=== PATIENT | male | born 1945 | race Asian ===

== ENCOUNTER 2021-05-20 06:15 | Emergency (ER) | payer MEDICARE, OTHER ==
[~2021-05-20] VITALS: Ht 162.6 cm; Wt 73.2 kg
[2021-05-20 06:16] VITALS: BP 120/64
[2021-05-20] MEDS ORDERED: BUPR1FIL SL (06:28)
[2021-05-20] MEDS ORDERED: XARE20TA PO (06:38)
[2021-05-20] MEDS ORDERED: DIGO0.123 PO (06:38)
[2021-05-20] MEDS ORDERED: SENN8.6T58 PO (06:38)
[2021-05-20] MEDS ORDERED: NALO12.5 PO (06:38)
[2021-05-20] MEDS ORDERED: SIMV10TA21 PO (06:38)
[2021-05-20] MEDS ORDERED: RAPA8CAP4 PO (06:38)
[2021-05-20] MEDS ORDERED: METF-839 PO (06:38)
[2021-05-20] MEDS ORDERED: HALO0.052 TOP (06:38)
[2021-05-20] MEDS ORDERED: FERR325T3 PO (06:38)
[2021-05-20] MEDS ORDERED: ATEN25TA PO (06:38)
[2021-05-20] MEDS ORDERED: VITACAP8 PO (06:38)
[2021-05-20] MEDS ORDERED: LINZ145C PO (06:38)
[2021-05-20] MEDS ORDERED: NEPHTAB2 PO (06:38)
[2021-05-20] MEDS ORDERED: DOCU100C16 PO (06:38)
[2021-05-20] MEDS ORDERED: AVOD0.5C PO (06:38)
--- OUTSIDE RECORDS SUMMARY | 2021-05-20 11:28 | CCD ---
Author Author [facility] Organization [facility] Address Unknown Phone Unavailable Care Team Providers Care Equipment Monitor Phototypesetting Name Role Phone Lundy, M Luna PA-C Unavailable Unavailable Lundy, M Luna PA-C Unavailable Unavailable Lundy, M Luna PA-C Unavailable Unavailable Lundy, M Luna PA-C Unavailable Unavailable Lundy, M Luna PA-C Unavailable Unavailable Lundy, M Luna PA-C Unavailable Unavailable Lundy, M Luna PA-C Unavailable Unavailable Lundy, M Luna PA-C Unavailable Unavailable Lundy, M Luna PA-C Unavailable Unavailable Lundy, M Luna PA-C Unavailable Unavailable Lundy, M Luna PA-C Unavailable Unavailable Lundy, M Luna PA-C Unavailable Unavailable Lundy, M Luna PA-C Unavailable Unavailable Lnudy, M Luna PA-C Unavailable Unavailable Lundy, M Luna PA-C Unavailable Unavailable Lundy, M Luna PA-C Unavailable Unavailable Lundy, M Luna PA-C Unavailable Unavailable Lundy, M Luna PA-C Unavailable Unavailable Lundy, M Luna PA-C Unavailable Unavailable Lundy, M Luna PA-C Unavailable Unavailable Lundy, M Luna PA-C Unavailable Unavailable Lundy, M Luna PA-C Unavailable Unavailable Lundy, M Luna PA-C Unavailable Unavailable Lundy, M Luna PA-C Unavailable Unavailable Lundy, M Luna PA-C Unavailable Unavailable Lundy, M Luna PA-C Unavailable Unavailable Lundy, M Luna PA-C Unavailable Unavailable Lundy, M Luna PA-C Unavailable Unavailable Lundy, M Luna PA-C Unavailable Unavailable Lundy, M Luna PA-C Unavailable Unavailable Lundy, M Luna PA-C Unavailable Unavailable Lundy, M Luna PA-C Unavailable Unavailable Lundy, M Luna PA-C Unavailable Unavailable Lundy, M Luna PA-C Unavailable Unavailable Lundy, M Luna PA-C Unavailable Unavailable Lundy, M Luna PA-C Unavailable Unavailable Lundy, M Luna PA-C Unavailable Unavailable Lundy, M Luna PA-C Unavailable Unavailable Kunnumpurath, F Elmira MD Unavailable Unavailable Kunnumpurath, F Elmira MD Unavailable Unavailable Kunnumpurath, F Elmira MD Unavailable Unavailable Kunnumpurath, F Elmira MD Unavailable Unavailable Kunnumpurath, F Elmira MD Unavailable Unavailable Kunnumpurath, F Elmira MD Unavailable Unavailable Kunnumpurath, F Elmira MD Unavailable Unavailable Kunnumpurath, F Elmira MD Unavailable Unavailable Kunnumpurath, F Elmira MD Unavailable Unavailable Kunnumpurath, F Elmira MD Unavailable Unavailable Kunnumpurath, F Elmira MD Unavailable Unavailable Kunnumpurath, F Elmira MD Unavailable Unavailable Kunnumpurath, F Elmira MD Unavailable Unavailable Kunnumpurath, F Elmira MD Unavailable Unavailable Kunnumpurath, F Elmira MD Unavailable Unavailable Kunnumpurath, F Elmira MD Unavailable Unavailable Kunnumpurath, F Elmira MD Unavailable Unavailable Kunnumpurath, F Elmira MD Unavailable Unavailable Kunnumpurath, F Elmira MD Unavailable Unavailable Kunnumpurath, F Elmira MD Unavailable Unavailable Kunnumpurath, F Elmira MD Unavailable Unavailable Kunnumpurath, F Elmira MD Unavailable Unavailable Kunnumpurath, F Elmira MD Unavailable Unavailable Kunnumpurath, F Elmira MD Unavailable Unavailable Kunnumpurath, F Elmira MD Unavailable Unavailable Kunnumpurath, F Elmira MD Unavailable Unavailable Kunnumpurath, F Elmira MD Unavailable Unavailable Kunnumpurath, F Elmira MD Unavailable Unavailable Kunnumpurath, F Elmira MD Unavailable Unavailable Kunnumpurath, F Elmira MD Unavailable Unavailable Kunnumpurath, F Elmira MD Unavailable Unavailable Kunnumpurath, F Elmira MD Unavailable Unavailable Kunnumpurath, F Elmira MD Unavailable Unavailable Kunnumpurath, F Elmira MD Unavailable Unavailable Kunnumpurath, F Elmira MD Unavailable Unavailable Kunnumpurath, F Elmira MD Unavailable Unavailable Kunnumpurath, F Elmira MD Unavailable Unavailable Kunnumpurath, F Elmira MD Unavailable Unavailable Kunnumpurath, F Elmira MD Unavailable Unavailable Kunnumpurath, F Elmira MD Unavailable Unavailable Kunnumpurath, F Elmira MD Unavailable Unavailable Kunnumpurath, F Elmira MD Unavailable Unavailable Kunnumpurath, F Elmira MD Unavailable Unavailable Kunnumpurath, F Elmira MD Unavailable Unavailable Kunnumpurath, F Elmira MD Unavailable Unavailable Kunnumpurath, F Elmira MD Unavailable Unavailable Kunnumpurath, F Elmira MD Unavailable Unavailable Kunnumpurath, F Elmira MD Unavailable Unavailable Kunnumpurath, F Elmira MD Unavailable Unavailable Kunnumpurath, F Elmira MD Unavailable Unavailable Kunnumpurath, F Elmira MD Unavailable Unavailable Kunnumpurath, F Elmira MD Unavailable Unavailable Kunnumpurath, F Elmira MD Unavailable Unavailable Kunnumpurath, F Elmira MD Unavailable Unavailable Kunnumpurath, F Elmira MD Unavailable Unavailable Kunnumpurath, F Elmira MD Unavailable Unavailable Kunnumpurath, F Elmira MD Unavailable Unavailable Kunnumpurath, F Elmira MD Unavailable Unavailable Kunnumpurath, F Elmira MD Unavailable Unavailable Kunnumpurath, F Elmira MD Unavailable Unavailable Kunnumpurath, F Elmira MD Unavailable Unavailable Kunnumpurath, F Elmira MD Unavailable Unavailable Kunnumpurath, F Elmira MD Unavailable Unavailable Kunnumpurath, F Elmira MD Unavailable Unavailable Kunnumpurath, F Elmira MD Unavailable Unavailable Kunnumpurath, F Elmira MD Unavailable Unavailable Kunnumpurath, F Elmira MD Unavailable Unavailable Kunnumpurath, F Elmira MD Unavailable Unavailable Kunnumpurath, F Elmira MD Unavailable Unavailable Kunnumpurath, F Elmira MD Unavailable Unavailable Kunnumpurath, F Elmira MD Unavailable Unavailable Kunnumpurath, F Elmira MD Unavailable Unavailable Kunnumpurath, F Elmira MD Unavailable Unavailable Kunnumpurath, F Elmira MD Unavailable Unavailable Kunnumpurath, F Elmira MD Unavailable Unavailable Kunnumpurath, F Elmira MD Unavailable Unavailable Kunnumpurath, F Elmira MD Unavailable Unavailable Kunnumpurath, F Elmira MD Unavailable Unavailable Kunnumpurath, F Elmira MD Unavailable Unavailable Kunnumpurath, F Elmira MD Unavailable Unavailable Kunnumpurath, F Elmira MD Unavailable Unavailable Kunnumpurath, F Elmira MD Unavailable Unavailable Kunnumpurath, F Elmira MD Unavailable Unavailable Kunnumpurath, F Elmira MD Unavailable Unavailable Kunnumpurath, F Elmira MD Unavailable Unavailable Kunnumpurath, F Elmira MD Unavailable Unavailable Kunnumpurath, F Elmira MD Unavailable Unavailable Kunnumpurath, F Elmira MD Unavailable Unavailable Kunnumpurath, F Elmira MD Unavailable Unavailable Kunnumpurath, F Elmira MD Unavailable Unavailable Kunnumpurath, F Elmira MD Unavailable Unavailable Kunnumpurath, F Elmira MD Unavailable Unavailable Re-disclosure Warning The records that you are about to access may contain information from federally-assisted alcohol or drug abuse programs. If such information is present, then the following federally mandated warning applies: This information has been disclosed to you from records protected by federal confidentiality rules (42 CFR part 2). The federal rules prohibit you from making any further disclosure of this information unless further disclosure is expressly permitted by the written consent of the person to whom it pertains or as otherwise permitted by 42 CFR part 2. A general authorization for the release of medical or other information is NOT sufficient for this purpose. The Federal rules restrict any use of the information to criminally investigate or prosecute any alcohol or drug abuse patient.The records that you are about to access may contain highly sensitive health information, the redisclosure of which is protected by Article 27-F of the [facility] Public Health law. If you continue you may have access to information: Regarding HIV / AIDS; Provided by facilities licensed or operated by the [facility] Office of Mental Health; or Provided by the [facility] Office for People With Developmental Disabilities. If such information is present, then the following [facility] mandated warning applies: This information has been disclosed to you from confidential records which are protected by state law. State law prohibits you from making any further disclosure of this information without the specific written consent of the person to whom it pertains, or as otherwise permitted by law. Any unauthorized further disclosure in violation of state law may result in a fine or chcf sentence or both. A general authorization for the release of medical or other information is NOT sufficient authorization for further disc losure. Encounters Encounter Providers Location Date Indications Data Source(s ) Outpatient Attender: Luna Lundy PA-C 11/16 07:17:00 AM EDT - 11/29/2020 07:17:00 AM EDT [facility] Outpatient Attender: Elmira Perez MD 0 09/23/2020 01:26:00 PM EDT - 09/23/2020 01:26:00 PM EDT [facility] Outpatient Attender: Elmira Perez MD Family Practice 0 09/22/2020 03:00:00 PM EDT [facility] ([facility]) Outpatient Attender: Elmira Perez MD 0 09/22/2020 02:57:00 PM EDT - 09/22/2020 02:57:00 PM EDT [facility] Immunizations Vaccine Date Status Description Data Source(s) COVID-19 VACCINE Moderna 11/05/2020 12:00:00 AM EDT completed [facility] Vaccine Series Complete: YESThis Data wa s Submitted to [facility] Via [employer]. COVID-19 VACCINE Moderna 10/08/2020 12:00:00 AM EDT completed [facility] Vaccine Series Complete: NOThis Data was Submitted to [facility] Via [employer]. Medications Medication Brand Name Start Date Product Form Dose Route Admi nistrative Instructions Pharmacy Instructions Status Indications Reaction Description Data Source(s) Metformin hydrochloride 500 MG Oral Tablet Metformin HCL 11/25/2020 12:00:00 AM EDT ORAL completed [facility] ([facility]) 24 HR Metformin hydrochloride 500 MG Extended Release Oral Tablet Metformin HCL ER 11/25/2020 12:00:00 AM EDT ORAL active [facility] ([facility]) Insurance Providers Payer name Policy type / Coverage type Policy ID Covered democrat ID Covered democrat's relationship to fox Policy Fox Plan Information MEDICARE [id number] SP [id number] HUMANA HMO [id number] SP [id number] MEDICAID [facility] [id number] MEDICARE PART A [facility] [id number] Problems, Conditions, and Diagnoses Code Display Name Description Problem Type Effective Dates Data Source(s) L299 Pruritus, unspecified Pruritus, unspecified Diagnosis 11/29/2020 07:17:00 AM EDT [facility] Z0289 Encounter for other administrative exami nations Encounter for other administrative examinations Diagnosis 11/29/2020 07:17:00 AM EDT [facility] E11.9 Type 2 diabetes mellitus Type 2 diabetes mellitus Prob kinjal 09/22/2020 12:00:00 AM EDT [facility] ([facility]) E78.5 Hyperlipidemia Hyperlipidemia Problem 09/22/2020 12:00: 00 AM EDT [facility] ([facility]) G89.4 Chronic pain syndrome Chronic pain syndrome Problem 09/22/2020 12:00:00 AM EDT [facility] ([facility]) I48.0 Paroxysmal atrial fibrillation Paroxysmal atrial fibri llation Problem 09/22/2020 12:00:00 AM EDT [facility] ([facility]) F32.89 Depressive disorder Depressive disorder Problem 0 09/22/2020 12:00:00 AM EDT [facility] ([facility]) [id number] Essential hypertension Essential hypertension Problem 09/22/2020 12:00:00 AM EDT [facility] ([facility]) [id number] Pure hypercholesterolemia Pure hypercholesterolemia Pr oblem 09/22/2020 12:00:00 AM EDT [facility] ([facility]) Surgeries/Procedures Procedure Description Date Indications Data Source(s) Electrocardiogram Complete 09/22/2020 12:00:00 AM EDT [facility] ([facility]) Brief Emotional/Behav Assessment W/ Scoring Doc Per Standard Inst 09/22/2020 12:00:00 AM EDT [facility] ([facility]) Admin Patient Focused Health Risk Assessment Instrument 09/22/2020 12:00:00 AM EDT [facility] ([facility]) Results ID Date Data Source [id number] 09/23/2020 01:15:00 PM EDT [facility] ([facility]) Name Value Range Interpretation Code Description Data Cintia rce(s) Supporting Document(s) Iron [Mass/volume] in Serum or Plasma 50 ug/dL 42-135 [facility] ([facility]) Is patient fasting? N Time of last dose : UNK Cobalamin (Vitamin B12) [Mass/volume] in Serum or Plasma 645 pg/mL 2 32-1245 [facility] ([facility]) Is patient fasting? N Time of last dose : UNK Digoxin [Mass/volume] in Serum or Plasma Laboratory test result 0.8-2.0 Below low normal [facility] ([facility]) Is patient fasting? N Time of last dose : UNK ID Date Data Source [id number] 09/23/2020 01:15:00 PM EDT [facility] ([facility]) Name Value Range Interpretation Code Description Data Cintia rce(s) Supporting Document(s) Hemoglobin A1c/Hemoglobin.total in Blood 6.6 % 4.4-6.1 Above high normal [facility] ([facility]) Is patient fasting? N Time of last dose : UNK ID Date Data Source [id number] 09/23/2020 01:15:00 PM EDT [facility] ([facility]) Name Value Range Interpretation Code Description Data Cintia rce(s) Supporting Document(s) Cve Panel Laboratory test result [facility] ([facility]) Is patient fasting? N Time of last dose : UNK Cholesterol 192 mg/dL 131-200 [facility] ([facility]) Is patient fasting? N Time of last dose : UNK HDL 58 mg/dL 29-86 [facility] ([facility]) Is patient fasting? N Time of last dose : UNK Triglycerides 100 mg/dL 35-160 [facility] ([facility]) Is patient fasting? N Time of last dose : UNK LDL 126 mg/dL 65-175 [facility] ([facility]) Is patient fasting? N Time of last dose : UNK Risk Factor 3.3 3.4-4.9 Below low normal [facility] ([facility]) Is patient fasting? N Time of last dose : UNK LDL/HDL 2.17 1.00-3.55 [facility] ([facility]) Is patient fasting? N Time of last dose : UNK ID Date Data Source [id number] 09/23/2020 01:15:00 PM EDT [facility] ([facility]) Name Value Range Interpretation Code Description Data Cintia rce(s) Supporting Document(s) Thyrotropin [Units/volume] in Serum or Plasma 1.76 uIU/mL 0.47-5.01 [facility] ([facility]) Is patient fasting? N Time of last dose : UNK ID Date Data Source [id number] 09/23/2020 01:15:00 PM EDT [facility] ([facility]) Name Value Range Interpretation Code Description Data Cintia rce(s) Supporting Document(s) Sodium 138 meq/L 134-153 [facility] ([facility]) Is patient fasting? N Time of last dose : UNK Comprehensive Metabo Laboratory test result [facility] ([facility]) Is patient fasting? N Time of last dose : UNK Chloride 101 meq/L 98-107 [facility] ([facility]) Is patient fasting? N Time of last dose : UNK Potassium 4.9 meq/L 3.6-5.0 [facility] ([facility]) Is patient fasting? N Time of last dose : UNK BUN 21 mg/dL 7-21 [facility] ([facility]) Is patient fasting? N Time of last dose : UNK Co2 32 meq/L 22-30 Above high normal [facility] ([facility]) Is patient fasting? N Time of last dose : UNK Glucose 139 mg/dL 70-99 Above high normal [facility] ([facility]) Is patient fasting? N Time of last dose : UNK BUN/Creat 21 8-27 [facility] ([facility]) Is patient fasting? N Time of last dose : UNK Creatinine 1.0 mg/dL 0.7-1.5 [facility] ([facility]) Is patient fasting? N Time of last dose : UNK Albumin 4.1 g/dL 3.9-5.0 [facility] ([facility]) Is patient fasting? N Time of last dose : UNK Globulin 2.9 GM/DL 2.4-3.2 [facility] ([facility]) Is patient fasting? N Time of last dose : UNK Total Protein 7.0 g/dL 6.3-8.2 [facility] ([facility]) Is patient fasting? N Time of last dose : UNK A/G Ratio 1.4 0.8-2.0 [facility] ([facility]) Is patient fasting? N Time of last dose : UNK Calcium 9.4 mg/dL 8.4-10.2 [facility] ([facility]) Is patient fasting? N Time of last dose : UNK Sgot/Ast 28 U/L 5-40 [facility] ([facility]) Is patient fasting? N Time of last dose : UNK Total Bili Laboratory test result 0.2-1.3 ME [facility] ([facility]) Is patient fasting? N Time of last dose : UNK Alkaline Phos 80 U/L 38-126 [facility] ([facility]) Is patient fasting? N Time of last dose : UNK SGPT/Alt 27 U/L 7-56 [facility] ([facility]) Is patient fasting? N Time of last dose : UNK Anion Gap 5.0 mmol/L 8.0-16.0 Below low normal [facility] ( [facility]) Is patient fasting? N Time of last dose : UNK Non-Aa GFR Laboratory test result [facility] ([facility]) Is patient fasting? N Time of last dose : UNK Age 74 yrs [facility] ([facility]) Is patient fasting? N Time of last dose : UNK Afr Amer GFR Laboratory test result [facility] ([facility]) Is patient fasting? N Time of last dose : UNK ID Date Data Source [id number] 09/23/2020 01:15:00 PM EDT [facility] ([facility]) Name Value Range Interpretation Code Description Data Cintia rce(s) Supporting Document(s) CBC No Diff Laboratory test result [facility] ([facility]) Is patient fasting? N Time of last dose : UNK WBC 5.4 10^3/uL 4.2-11.0 [facility] ([facility]) Is patient fasting? N Time of last dose : UNK RBC 4.20 10^6/uL 4.50-6.30 Below low normal [facility] ([facility]) Is patient fasting? N Time of last dose : UNK Hemoglobin 12.5 g/dL 14.0-16.0 Below low normal [facility] ( [facility]) Is patient fasting? N Time of last dose : UNK Hematocrit 38.2 % 41.0-51.0 Below low normal [facility] ( [facility]) Is patient fasting? N Time of last dose : UNK MCV 91.0 fL 80.0-94.0 [facility] ([facility]) Is patient fasting? N Time of last dose : UNK MCH 29.8 pg 27.0-34.0 [facility] ([facility]) Is patient fasting? N Time of last dose : UNK MCHC 32.7 g/dL 31.0-36.0 [facility] ([facility]) Is patient fasting? N Time of last dose : UNK Platelets 229 10^3/uL 150-450 [facility] ([facility]) Is patient fasting? N Time of last dose : UNK RDW 13.5 % 11.5-14.8 [facility] ([facility]) Is patient fasting? N Time of last dose : UNK MPV 10.0 fL 7.4-10.4 [facility] ([facility]) Is patient fasting? N Time of last dose : UNK ID Date Data Source [id number] 09/23/2020 05:22:00 PM EDT [facility] Name Value Range Interpretation Code Description Data Cintia rce(s) Supporting Document(s) Hemoglobin A1c/Hemoglobin.total in Blood 6.6 % 4.4 - 6.1 H [facility] {A1]{HB] ID Date Data Source [id number] 09/23/2020 05:22:00 PM EDT [facility] Name Value Range Interpretation Code Description Data Cintia rce(s) Supporting Document(s) Digoxin [Mass/volume] in Serum or Plasma <0.4 NG/ML 0.8 - 2.0 L [facility] ID Date Data Source [id number] 09/23/2020 05:22:00 PM EDT [facility] Name Value Range Interpretation Code Description Data Cintia rce(s) Supporting Document(s) CVE PANEL [facility] LIPID PANEL Cholesterol [Mass/volume] in Serum or Plasma 192 MG/DL 131 - 200 [facility] Deprecated Triglyceride [Mass/volume] in Serum or Plasma 100 MG/DL 3 5 - 160 [facility] HDL 58 MG/DL 29 - 86 [facility] Cholesterol in LDL [Mass/volume] in Serum or Plasma by Direc t assay 126 mg/dL 65 - 175 [facility] Cholesterol.total/Cholesterol in HDL [Mass Ratio] in Serum o r Plasma 3.3 3.4 - 4.9 L [facility] LDL/HDL 2.17 1.00 - 3.55 [facility] ital CVE RISK CHOL/HDL LDL/HDLMEN: 1/2 AVERAGE 3.43 1.00 AVERAGE 4.97 3.55 2X AVERAGE 9.55 6.25 3X AVERAGE 23.99 7.99WOMEN: 1/2 AVERAGE 3.27 1.47 AVERAGE 4.44 3.22 2X AVERAGE 7.05 5.03 3X AVERAGE 11.04 6.14 ID Date Data Source [id number] 09/23/2020 05:22:00 PM EDT [facility] Name Value Range Interpretation Code Description Data Cintia rce(s) Supporting Document(s) COMPREHENSIVE METABOLIC PANEL [facility] COMPREHENSIVE METABOLIC PANEL Sodium [Moles/volume] in Serum or Plasma 138 mEq/L 134 - 153 [facility] Potassium [Moles/volume] in Serum or Plasma 4.9 mEq/L 3.6 - 5.0 [facility] Chloride [Moles/volume] in Serum or Plasma 101 mEq/L 98 - 107 [facility] Carbon dioxide, total [Moles/volume] in Serum or Plasma 32 MEQ/L 22 - 30 H [facility] Glucose [Mass/volume] in Serum or Plasma 139 MG/DL 70 - 99 H [facility] BUN 21 MG/DL 7 - 21 [facility] Creatinine [Mass/volume] in Serum or Plasma 1.0 MG/DL 0.7 - 1.5 [facility] BUN/CREAT 21 8 - 27 [facility] Protein [Mass/volume] in Serum or Plasma 7.0 G/DL 6.3 - 8.2 [facility] Albumin [Mass/volume] in Serum or Plasma 4.1 G/DL 3.9 - 5.0 [facility] Globulin [Mass/volume] in Serum by calculation 2.9 GM/DL 2.4 - 3.2 [facility] A/G RATIO 1.4 0.8 - 2.0 [facility] Calcium [Mass/volume] in Serum or Plasma 9.4 MG/DL 8.4 - 10.2 [facility] Bilirubin.total [Mass/volume] in Serum or Plasma <0.7 MG/DL 0.2 - 1.3 [facility] Alkaline phosphatase [Enzymatic activity/volume] in Serum or Plasma 80 U/L 38 - 126 [facility] Aspartate aminotransferase [Enzymatic activity/volume] in Serum or Plasma 28 U/L 5 - 40 [facility] Alanine aminotransferase [Enzymatic activity/volume] in Seru m or Plasma 27 U/L 7 - 56 [facility] Anion gap 3 in Serum or Plasma 5.0 mmol/L 8.0 - 16.0 L [facility] AGE 74 yrs [facility] NON-AA GFR >60 mL/min [facility] ital AFR AMER GFR >60 mL/min [facility] Ho spital Male GFR In terprentation 20-49 yrs >60 mL/min Normal 50-59 yrs >56 mL/min Normal 60-69 yrs >49 mL/min Normal 70-79yrs >42 mL/min Normal 80 and above >35 mL/min Normal Female GFR Interpretation 20-39 yrs >60 mL/min Normal 40-49 yrs >58 mL/min Normal 50-59 yrs >51 mL/min Normal 60-69 yrs >45 mL/min Normal 70-79 yrs >39 mL/min Normal 80 and above >32 mL/min Normal ID Date Data Source [id number] 09/23/2020 05:10:00 PM EDT [facility] Name Value Range Interpretation Code Description Data Cintia rce(s) Supporting Document(s) Cobalamin (Vitamin B12) [Mass/volume] in Serum or Plasma 645 PG/ML 232 - 1245 [facility] ID Date Data Source [id number] 09/23/2020 05:10:00 PM EDT [facility] Name Value Range Interpretation Code Description Data Cintia rce(s) Supporting Document(s) Thyrotropin [Units/volume] in Serum or Plasma by Detec tion limit <= 0.05 mIU/L 1.76 uIU/mL 0.47 - 5.01 [facility] ID Date Data Source [id number] 09/23/2020 04:47:00 PM EDT [facility] Name Value Range Interpretation Code Description Data Cintia rce(s) Supporting Document(s) Iron [Mass/volume] in Serum or Plasma 50 UG/DL 42 - 135 [facility] ID Date Data Source [id number] 09/23/2020 04:42:00 PM EDT [facility] Name Value Range Interpretation Code Description Data Cintia rce(s) Supporting Document(s) CBC NO DIFF [facility] ital COMPLETE BLOOD COUNT Leukocytes [#/volume] in Blood by Automated count 5.4 10^3/uL 4.2 - 1 1.0 [facility] Erythrocytes [#/volume] in Blood by Automated count 4.20 10^6/uL 4. 50 - 6.30 L [facility] Hemoglobin [Mass/volume] in Blood 12.5 g/dL 14.0 - 16.0 L [facility] Hematocrit [Volume Fraction] of Blood by Automated count 38.2 % 4 1.0 - 51.0 L [facility] Erythrocyte mean corpuscular volume [Entitic volume] by Auto mated count 91.0 fL 80.0 - 94.0 [facility] Erythrocyte mean corpuscular hemoglobin [Entitic mass] by Automated count 29.8 pg 27.0 - 34.0 [facility] Erythrocyte mean corpuscular hemoglobin concentration [Mass/volume] by Automated count 32.7 g/dL 31.0 - 36.0 [facility] Erythrocyte distribution width [Ratio] by Automated count 13.5 % 11.5 - 14.8 [facility] Platelets [#/volume] in Blood by Automated count 229 10^3/uL 150 - 45 0 [facility] Platelet mean volume [Entitic volume] in Blood by Automated count 10.0 fL 7.4 - 10.4 [facility] ID Date Data Source [id number] 09/22/2020 03:56:00 PM EDT [facility] ([facility]) Name Value Range Interpretation Code Description Data Cintia rce(s) Supporting Document(s) Inhouse EKG Laboratory test result [facility] ([facility]) Procedure Social History No Information Vital Signs ID Date Data Source UNK Name Value Range Interpretation Code Description Data Source(s) Systolic blood pressure 118 mm[Hg] 118 mm[Hg] M [facility] ([facility]) Diastolic blood pressure 70 mm[Hg] 70 mm[Hg] [facility] ([facility]) Heart rate 88 /min 88 /min [facility] ([facility]) Body temperature 96.9 [degF] 96.9 [degF] [facility] ([facility]) Respiratory rate 16 /min 16 /min [facility] ( [facility]) Oxygen saturation in Arterial blood by Pulse oximetry 96 % 96 % [facility] ([facility]) Body weight 152.38 [lb_av] 152.38 [lb_av] [facility] T ([facility]) Body weight 69.117 kg 69.117 kg [facility] ([facility]) Body height 63 [in_i] 63 [in_i] [facility] ([facility]) 5'3" Body mass index (BMI) [Ratio] 27.0 kg/m2 27.0 k g/m2 [facility] ([facility]) Body surface area Derived from formula 1.72 m2 1.72 m2 [facility] ([facility]) Systolic blood pressure 120 mm[Hg] 120 mm[Hg] [facility] ([facility]) Diastolic blood pressure 68 mm[Hg] 68 mm[Hg] [facility] ([facility]) Heart rate 68 /min 68 /min [facility] ([facility]) Body temperature 97.7 [degF] 97.7 [degF] [facility] ([facility]) Respiratory rate 16 /min 16 /min [facility] ( [facility]) Oxygen saturation in Arterial blood by Pulse oximetry 98 % 98 % [facility] ([facility]) Body weight 152.50 [lb_av] 152.50 [lb_av] [facility] T ([facility]) Body weight 69.174 kg 69.174 kg [facility] ([facility]) Body height 63 [in_i] 63 [in_i] [facility] ([facility]) 5'3" Body mass index (BMI) [Ratio] 27.0 kg/m2 27.0 k g/m2 [facility] ([facility]) Body surface area Derived from formula 1.72 m2 1.72 m2 [facility] ([facility])
== END 2021-05-20 11:45 | disposition left against medical advice (07) ==
LOC: M ED 06:15
DX: M79.10 Myalgia, unspecified site (principal); Z53.20 Procedure and treatment not carried out because of patient's decision for unspecified reasons; I48.91 Unspecified atrial fibrillation; E11.9 Type 2 diabetes mellitus without complications; I10 Essential (primary) hypertension; E78.5 Hyperlipidemia, unspecified; Z79.899 Other long term (current) drug therapy

== ENCOUNTER 2021-12-20 18:30 | Emergency (ER) | payer MEDICARE, OTHER ==
[~2021-12-20] VITALS: Ht 160 cm; Wt 77.3 kg
[~2021-12-20 18:30] MED LIST: ATEN25TA PO; AVOD0.5C PO; BUPR1FIL SL; DIGO0.123 PO; DOCU100C16 PO; FERR325T3 PO; HALO0.052 TOP; LINZ145C PO; METF-839 PO; NALO12.5 PO; NEPHTAB2 PO; RAPA8CAP4 PO; SENN8.6T58 PO; SIMV10TA21 PO; VITACAP8 PO; XARE20TA PO
[2021-12-20 20:53] LABS: BASO % 0.1 % (0.0-1.0); EOS % 0.1 % (0.0-3.0); HEMOGLOBIN 11.9 g/dl (13.5-17.5); LYMPH # 0.9 10^3/uL (1.5-5.0); LYMPH % 10.8 % (24.0-44.0); MEAN CORPUSCULAR HEMOGLOBIN 30.1 pg (27.0-33.0); MEAN CORPUSCULAR HGB CONC 33.1 g/dl (32.0-36.5); MEAN CORPUSCULAR VOLUME 91.1 fl (80.0-96.0); MONO # 0.5 10^3/uL (0.0-0.8); MONO % 6.7 % (2.0-8.0); NEUTROPHILS # 6.5 10^3/uL (1.5-8.5); PLATELET COUNT, AUTOMATED 152 10^3/uL (150-450); RED BLOOD COUNT 3.95 10^6/uL (4.30-6.10)
[2021-12-20 21:17] LABS: ALBUMIN 3.1 GM/DL (3.2-5.2); BILIRUBIN,TOTAL 0.5 MG/DL (0.2-1.0); CREATININE FOR GFR 1.4 MG/DL (0.70-1.30); GLOMERULAR FILTRATION RATE 52.5 (>42); MAGNESIUM LEVEL 2.5 MG/DL (1.8-2.4); POTASSIUM SERUM 4.6 MEQ/L (3.5-5.1); TOTAL PROTEIN 6.8 GM/DL (6.4-8.2)
[2021-12-20 21:18] LABS: CK-MB VALUE MASS 14.7 NG/ML (<3.6); MB/CK RELATIVE INDEX 3.33 (< OR =4)
[2021-12-20] MEDS ORDERED: NS 1,000 ML IV ONE (22:20)
[2021-12-20] MEDS ORDERED: traMADol 50 MG TAB PO ONE (22:20)
[2021-12-20] MEDS ORDERED: TRAM50TA2 PO (23:10)
[2021-12-20] MEDS ORDERED: OMEP40CA4 PO (23:13)
[2021-12-20 23:45] VITALS: BP 123/73
== END 2021-12-21 00:10 | disposition home or self-care (01) ==
LOC: M ED 18:30 → EDBD 18:30 → M ED 12-21 00:10
DX: E86.0 Dehydration (principal); K52.9 Noninfective gastroenteritis and colitis, unspecified; K21.9 Gastro-esophageal reflux disease without esophagitis; E11.9 Type 2 diabetes mellitus without complications; I10 Essential (primary) hypertension; E78.5 Hyperlipidemia, unspecified; I48.91 Unspecified atrial fibrillation; Z79.899 Other long term (current) drug therapy; Z79.84 Long term (current) use of oral hypoglycemic drugs; Z79.01 Long term (current) use of anticoagulants; Z88.0 Allergy status to penicillin